=== PATIENT | male | born 1980 | race Caucasian/White ===

== ENCOUNTER 2021-06-05 15:26 | Emergency (ER) | payer OTHER ==
[2021-06-05 15:32] VITALS: BP 177/125
[2021-06-05] MEDS ORDERED: HYDROcod/ACETAM 5/325 MG TABLET PO STA (16:00)
[2021-06-05] MEDS ORDERED: PENICILLIN VK 250 MG TABLET PO STA (16:00)
--- NOTE | 2021-06-05 16:06 | ED Physician Documentation ---
History of Present Illness - Stated complaint Stated Complaint: R SIDE JAW PX - Chief complaint Chief Complaint: Heent - History obtained from History obtained from: Patient - History of Present Illness Pain level max: 8 Pain level now: 7 - Additonal information Additional information: 41-year-old male presents to the emergency department the right lower dental pain. He states that his filling fell out about 3 months ago and has had increasing pain over the past several days. Does not have dental insurance so has not seen a dentist. He is returning home to [place] for follow-up. No fevers. No chills. Worse with eating and drinking. Nothing makes it better. Review of Systems Constitutional: denies: Fever, Chills Ears: denies: Ear pain Nose: denies: Rhinorrhea / runny nose, Congestion GI: denies: Vomiting : denies: Dysuria Skin: denies: Rash Musculoskeletal: denies: Neck pain, Back pain Neurologic: denies: Headache PD PAST MEDICAL HISTORY - Past Medical History Past Medical History: Yes Cardiovascular: None Respiratory: None Neuro: None Endocrine/Autoimmune: None GI: None : None HEENT: None Psych: None Musculoskeletal: None Derm: None - Past Surgical History Past Surgical History: No - Present Medications Home Medications: Ambulatory Orders Medication Instructions Recorded Confirmed HYDROcod/ACETAM 5/325 [Erie 5/325] 1 - 2 ea PO Q6H PRN #14 tablet 06/05/21 Naproxen Sodium [Aleve] 220 mg PO Q6HR PRN 06/05/21 06/05/21 Penicillin V Potassium 500 mg PO Q6HR #40 tablet 06/05/21 - Allergies Allergies/Adverse Reactions: Allergies Allergy/AdvReac Type Severity Reaction Status Date / Time No Known Drug Allergies Allergy Verified 06/05/21 15:30 - Social History Does the pt smoke?: Yes Smoking Status: Current every day smoker Does the pt drink ETOH?: Yes ETOH Use: Beer Does the pt have substance abuse?: Yes Substance Use and Type: Marijuana PD ED PE NORMAL - Vitals Vital signs reviewed: Yes - General General: Alert and oriented X 3, No acute distress, Well developed/nourished - HEENT HEENT: PERRL, Ears normal, Moist mucous membranes - Neck Neck: Supple, no meningeal sign - Cardiac Cardiac: RRR - Respiratory Respiratory: No respiratory distress, Clear bilaterally - Derm Derm: Warm and dry - Neuro Neuro: Alert and oriented X 3 - Psych Psych: Normal mood, Normal affect PD ED PE EXPANDED - HEENT HEENT Visual: 1 - tenderness (Fractured tooth, no filling in place. No gingival swelling. No abscess. No facial swelling.) Results - Vitals Vitals: Vital Signs - 24 hr 06/05/21 15:30 Temperature 36 C L Heart Rate 97 Respiratory 20 Rate Blood Pressure 177/125 H O2 Saturation 100 Oxygen O2 Source Room air PD MEDICAL DECISION MAKING - ED course Complexity details: considered differential, d/w patient ED course: [place] was used to replace the filling. Patient tolerated well. Will prescribe antibiotics and pain medication for home. Will have him follow-up with his dentist. Patient is well-appearing, nontoxic. Afebrile. No drainable abscess. No Ludwigs angina. Normal phonation. No trismus. Patient counseled regarding signs and symptoms for which I believe and urgent re-evaluation would be necessary. Patient with good understanding of and agreement to plan and is comfortable going home at this time This document was made in part using voice recognition software. While efforts are made to proofread this document, sound alike and grammatical errors may occur. I am prescribing a short course of short-acting opioid pain medication for this patient. I have reviewed the patients [employer] and no concerning findings were noted. I have discussed that the opioids are for short term therapy only, and will not be refilled from the ED. Departure - Departure Disposition: 01 Home, Self Care Clinical Impression: Pain due to dental caries Condition: Good Instructions: ED Tooth Pain Follow-Up: your,dentist in 1 week [Other] Prescriptions: Penicillin V Potassium 500 mg PO Q6HR #40 tablet HYDROcod/ACETAM 5/325 [Erie 5/325] 1 - 2 ea PO Q6H PRN #14 tablet PRN Reason: Pain Comments: Take all antibiotics until gone. Return if you worsen. [facility] [place]. I am prescribing a short course of narcotic pain medication for you. These are potentially dangerous and addictive medications that should be used carefully. These medications may constipate you. Take an [id number] stool softener (docusate) twice daily with plenty of water while taking these medications. If you go 24 hours without a bowel movement, take [id number] miralax, per package instructions. Do not drink or drive while taking these medications. If you received narcotic or sedating medications while in the emergency department, do not drive for 24 hours. Store this medication in a safe, secure place and out of reach of children. It is a violation of federal law to give or sell this medication to another person or to use in a manner other than prescribed. The ED will not refill narcotic prescriptions, including prescriptions lost or stolen. To dispose of unwanted medications: 1. [facility] [address] in [place] has a medication drop box. They accept prescription medications (in pill form) Friday through Friday 9:00 a.m. to 5:00 p.m. 2. [facility] [employer] accepts prescription medications (in pill form only) for disposal year round. Call for more information. 3. Contact the [facility] for the next [facility] sponsored prescription drug collection event. , [phone], or [phone]; Discharge Date/Time: 06/05/21 16:12
== END 2021-06-05 16:12 | disposition home or self-care (01) ==
LOC: ED 15:26
DX: K02.9 Dental caries, unspecified (principal); K03.81 Cracked tooth; F17.200 Nicotine dependence, unspecified, uncomplicated
CPT/HCPCS: 99282; 99284; A9270